=== PATIENT | female | born 1985 | race Caucasian/White ===

== ENCOUNTER 2017-06-21 10:07 | Emergency (ER) | payer MEDICAID, OTHER ==
[~2017-06-21] VITALS: Ht 152.4 cm; Wt 49.4 kg
[~2017-06-21 10:07] MED LIST: TYLE
[2017-06-21 10:41] VITALS: BP_SYST 100
--- NOTE | 2017-06-21 12:58 | NUR ---
Ambulatory to [facility], report given to Dr. Dickson.
--- NOTE | 2017-06-21 13:13 | NUR ---
ER Dr. Dickson at bedside examining patient.
[2017-06-21 13:53] VITALS: BP_SYST 103
--- NOTE | 2017-06-21 13:53 | NUR ---
Patient given written and verbal discharge instructions and verbalizes understanding. ER MD discussed with patient the results and treatment provided. Patient in stable condition. ID arm band removed. Rx of protonix given. Patient educated on pain management and to follow up with PMD. Pain Scale 2/10. Opportunity for questions provided and answered. Medication side effect fact sheet provided.
== END 2017-06-21 13:53 | disposition home or self-care (01) ==
LOC: SED 10:07
DX: K21.9 Gastro-esophageal reflux disease without esophagitis (principal); Z88.2 Allergy status to sulfonamides; Z88.1 Allergy status to other antibiotic agents
CPT/HCPCS: 81025; 99283